=== PATIENT | female | born 1990 | race Two or more races ===

== ENCOUNTER 2016-07-29 08:50 | Observation (INO) | payer MEDICAID | END 2016-07-29 11:35 | disposition home or self-care (01) | DRG 566 | LOC: LDRP 08:50 | PROVIDERS: ADMIT Specialist; ATTEND Specialist | DX: O26.893 Other specified pregnancy related conditions, third trimester (principal); O62.9 Abnormality of forces of labor, unspecified; R10.9 Unspecified abdominal pain; M54.9 Dorsalgia, unspecified; Z3A.39 39 weeks gestation of pregnancy | CPT/HCPCS: 59025; 81002; G0378 ==

== ENCOUNTER 2016-07-29 16:40 | Observation (INO) | payer MEDICAID ==
[~2016-07-29] VITALS: Ht 30.5 cm; Wt 0.5 kg
[2016-07-29] MEDS ORDERED: LACTATED RINGER'S 1,000 ML IV SCH (17:16)
[2016-07-29] MEDS ORDERED: DERMOPLAST 60ML BOTTLE TOP PRN (17:30)
[2016-07-29] MEDS ORDERED: WITCH HAZEL-GLYCERIN PAD TOP PRN (17:30)
[2016-07-29] MEDS ORDERED: NALBUPHINE HCL 10 MG/1ml INJECTION IV PRN (17:30)
[2016-07-29] MEDS ORDERED: PHISODERM TOP SOLN 240ML BTL TOP PRN (17:30)
[2016-07-29] MEDS ORDERED: LIDOCAINE 2%HCL (LOCAL ANESTH.) INJ 20ML MDV IJ ONE (17:30)
[2016-07-29] MEDS ORDERED: LACT. RINGERS/OXYTOCIN 20UNITS 1,000 ML IV ONE ×2 (17:42→17:45)
[2016-07-29] MEDS ORDERED: ACETAMINOPHEN 325 MG TAB PO PRN (18:15)
[2016-07-29] MEDS ORDERED: IBUPROFEN 600 MG TAB PO PRN (18:15)
[2016-07-29] MEDS ORDERED: IBUPROFEN 600 MG TAB PO ONE (18:18)
[2016-07-29 18:29] LABS: Basophils # (auto) 0 uL; Eosinophils # (auto) 0.1 uL; Eosinophils % (auto) 0.4 % (0.0-7.0); Hematocrit 41.7 % (36.0-46.0); Hemoglobin 14.4 g/dL (12.2-16.2); Lymphocytes # (auto) 2.1 uL; Lymphocytes % (auto) 10.9 % (10.0-50.0); Mean Corpuscular Hgb Conc. 34.5 g/dL (32.0-36.0); Mean Corpuscular Volume 95.5 fL (80.0-100.0); Mean Platelet Volume 10.7 fL (7.4-10.4); Monocytes # (auto) 1.2 uL; Monocytes % (auto) 6.4 % (0.0-12.0); Neutrophils # (auto) 15.8 uL; Neutrophils % (auto) 82.3 % (37.0-80.0); Platelet Count (auto) 195 10^3/uL (140-450); Red Cell Distribution Width 13.3 % (11.6-16.0); White Blood Cell 19.2 10^3/uL (4.4-10.8)
[2016-07-29] MEDS: DOCUSATE CALCIUM 240 MG CAP PO SCH (18:32)
[2016-07-29 18:45] VITALS: BP 113/69
[2016-07-29 18:49] LABS: INR 0.9 (0.9-1.15); Partial Thromboplastin Time 26.6 sec (22.64-33.71); Prothrombin Time 9.8 sec (9.37-12.3)
[2016-07-29 18:53] LABS: Albumin 2.8 g/dL (3.4-5.0); BUN/Creatinine Ratio 14.3; Bilirubin, Total 1.1 mg/dL (0.2-1.0); Calcium 8.5 mg/dL (8.5-10.1); Potassium 3.4 mmol/L (3.5-5.1); Total Protein 6.7 g/dL (6.4-8.2)
[2016-07-29 20:23] VITALS: BP 116/72
[2016-07-29 23:10] VITALS: BP 102/46
[2016-07-30 03:00] VITALS: BP 94/46
[2016-07-30 08:00] VITALS: BP 102/49
[2016-07-30] MEDS: DOCUSATE CALCIUM 240 MG CAP PO SCH (10:00)
[2016-07-30 12:10] VITALS: BP 115/53
[2016-07-30 13:41] VITALS: BP 105/52
[2016-07-30] MEDS ORDERED: MEASLES, MUMPS & RUBELLA VAC(MMRII) 0.5ML SC ONE (14:15)
[2016-07-30 16:09] VITALS: BP 100/65
[2016-07-30 19:39] VITALS: BP 113/69
== END 2016-07-30 19:39 | disposition home or self-care (01) | DRG 560 ==
LOC: LDRP 16:40
PROVIDERS: ADMIT Specialist; ATTEND Specialist
DX: O62.9 Abnormality of forces of labor, unspecified (principal); Z37.0 Single live birth; Z3A.39 39 weeks gestation of pregnancy
CPT/HCPCS: 36415; 59025; 59409; 80053; 85025; 85610; 85730; 86850; 86900; 86901; 90384; 96361; 96365; 96366; G0378; J2300; J2590